=== PATIENT | male | born 1970 | race Caucasian/White ===

== ENCOUNTER 2021-11-10 10:52 | Emergency (ER) | payer OTHER ==
[~2021-11-10] VITALS: Ht 175.3 cm; Wt 82.7 kg
[2021-11-10] MEDS ORDERED: IBUPROFEN 600 MG TABLET. PO ONE (11:30)
[2021-11-10] MEDS ORDERED: AMOXICILLIN/K CLAV 875/125MG TABLET. PO ONE (11:30)
[2021-11-10] MEDS ORDERED: HYDROcodone/APAP 5/325MG 1 TAB TABLET PO ONE (11:30)
[2021-11-10] MEDS ORDERED: IBUP600T16 PO (11:39)
[2021-11-10] MEDS ORDERED: AMOX1TAB61 PO (11:39)
--- NOTE | 2021-11-10 11:40 | PHYS DOC ---
Adult General Chief Complaint Chief Complaint: DENTAL PROBLEM HPI HPI Patient is a 51-year-old male who presents to the emergency department complaining of dental pain of the right lower molar, patient reports he has had problems with the cap repair on this tooth, has not seen a dentist, reports he is traveling here to [facility] to visit family over the holiday, will return to his home state of [place] tomorrow morning. Patient states he felt tingliness with mild off-and-on pain over the past week, woke up this morning with swelling around the gum with pain, patient reports mild pain relief with Orajel. Patient denies fever or chills, denies numbness or tingling to his face or tongue, denies problems speaking, denies shortness of breath or throat swelling. Patient denies recent fever or chills. Patient reports a past medical history of hypercholesterol, takes Zocor medication, does not take any other medications, denies other physical complaints or physical concerns. (SUKHDEV TALAVERA APRN) Review of Systems Review of Systems 14 body systems of review of systems have been reviewed. See HPI for pertinent positives and negative responses, otherwise all other systems are negative, nonpertinent or noncontributory. Constitutional: Negative except as outlined in HPI above. Skin: Negative except as outlined in HPI above. Eyes: Negative except as outlined in HPI above. HENT: Negative except as outlined in HPI above. Respiratory: Negative except as outlined in HPI above. Cardiovascular: Negative except as outlined in HPI above. GI: Negative except as outlined in HPI above. : Negative except as outlined in HPI above. Musculoskeletal: Negative except as outlined in HPI above. Integument: Negative except as outlined in HPI above. Neurologic: Negative except as outlined in HPI above. Endocrine: Negative except as outlined in HPI above. Lymphatic: Negative except as outlined in HPI above. Psychiatric: Negative except as outlined in HPI above. (SUKHDEV TALAVERA APRN) Current Medications Current Medications Current Medications Medications (Trade) Dose Ordered Sig/Fdai Start Time Stop Time Status Last Admin Dose Admin Acetaminophen/ Hydrocodone Bitart (Lortab 5/325) 1 tab 1X ONCE 11/10/21 11:30 11/10/21 11:31 UNV Amoxicillin/ Clavulanate Potassium (Augmentin 875/ 125mg) 1 tab 1X ONCE 11/10/21 11:30 11/10/21 11:31 UNV Ibuprofen (Motrin) 600 mg 1X ONCE 11/10/21 11:30 11/10/21 11:31 UNV (SUKHDEV TALAVERA APRN) Physical Exam Physical Exam Constitutional: Well developed, well nourished, no acute distress, non-toxic appearance. 51-year-old male in no apparent distress. HENT: Normocephalic, atraumatic. Oropharynx moist, pink, no deep tissue infectious process appreciated, no drooling, no trismus, no malocclusion, swelling to the lateral gum at tooth #30, no visual discrepancy of tooth cap repair. No lymphadenopathy of the head or neck appreciated. Patient speaking in full sentences, normal voice tones. Bilateral TMs within normal limits, no drainage from external auditory canals, patent nasal turbinates. Eyes: Conjunctiva normal, no discharge. Neck: Normal range of motion, no stridor. No nuchal rigidity, no meningismus signs. Cardiovascular: No cyanosis appreciated, distal cap refill less than 2 seconds. Lungs & Thorax: Patient is in no respiratory distress, no audible adventitious lung sounds appreciated. Abdomen: Nontender, no abnormalities noted. Skin: Warm, dry, no erythema, no rash. Back: No tenderness, no deformities. Extremities: No tenderness, no cyanosis, no clubbing, ROM intact, no edema. Neurologic: Alert and oriented X 3, normal motor function, normal sensory function, no focal deficits noted. Psychologic: Affect normal, judgement normal, mood normal. (SUKHDEV TALAVERA APRN) EKG EKG [] (SUKHDEV TALAVERA APRN) Radiology/Procedures Radiology/Procedures [] (SUKHDEV TALAVERA APRN) Heart Score C/O Chest Pain: No Risk Factors: Risk Factors: DM, Current or recent (<one month) smoker, HTN, HLP, family history of CAD, obesity. Risk Scores: Risk Factors: DM, Current or recent (<one month) smoker, HTN, HLP, family history of CAD, obesity. (SUKHDEV TALAVERA APRN) Course & Med Decision Making Course & Med Decision Making Pertinent Labs and Imaging studies reviewed. (See chart for details) 51-year-old male, vital signs reviewed, presents to the emergency department concerning dental infection over the past week became worse overnight. Physical examination consistent with dental abscess, patient is not febrile, oral temp 98.4. Will start on Augmentin and give p.o. pain medications in the ED prior to discharge, prescribed Augmentin regimen, 600 mg ibuprofen, strict follow-up with dentist when returns to home [facility] tomorrow. Discussed return to ER precautions or concerns, prescribed medications and possible side effects, patient gave verbal understanding of and is amenable to ED discharge planning. Discussed with the patient all findings and diagnostic testing as well as the need to follow-up with their primary care provider for further evaluation and treatment or return to the ED if any new or worsening symptoms. Strict return precautions were also discussed at length, the patient voiced understanding and agreement with the discharge planning. The patient was nontoxic in appearance, in no apparent distress, and hemodynamically stable at the time of disposition. (SUKHDEV TALAVERA APRN) Course & Med Decision Making I was the Attending physician on the above date of service of this patient. This patient was evaluated, examined, treated, and dispositioned from the emergency department by the mid-level practitioner. Although I was working at the time , no assistance was requested. Electronically signed, Twila Ayala DO (TWILA AYALA DO) Benjamín Disclaimer Benjamín Disclaimer This electronic medical record was generated, in whole or in part, using a voice recognition dictation system. (SUKHDEV TALAVERA APRN) Departure Departure: Impression: Primary Impression: Dental abscess Disposition: HOME / SELF CARE / HOMELESS Condition: GOOD Referrals: PCP,NO (PCP) Patient Instructions: Dental Abscess Additional Instructions: You were seen today in the emergency department for a dental infection. You were given your first dose of Augmentin in the emergency department, you will take this twice a day for the next 14 days, I will prescribe you 600 mg Motrin that you can take every 4-6 hours for pain and discomfort, you can continue to use [id number] Orajel for discomfort, warm salt water swish and spit to aid in discomfort and speedy recovery, please see your dentist when you return home to [place] tomorrow, return to the emergency department for worsening symptoms or other concerns. Thank you for visiting our Emergency Department. It was a pleasure taking care of you today in the emergency department and we appreciate you trusting us with your care. If any additional problems come up don't hesitate to return to visit us. Please follow up with your primary care provider so they can plan additional care if needed and know about the problem that you had. If symptoms worsen come back to the Emergency Department. Any concerning symptoms that start such as chest pain, shortness of air, weakness or numbness on one side of the body, running high fevers or any other concerning symptoms return to the ER. Scripts Ibuprofen (IBUPROFEN) 600 Mg Tablet 600 MG PO PRN Q4-6HRS PRN for dental pain, #30 TAB 0 Refills Prov: SUKHDEV TALAVERA APRN 11/10/21 Amoxicillin/Potassium Clav (AUGMENTIN 875-125 TABLET) 1 Each Tablet 1 TAB PO BID for dental infection for 14 Days, #28 TAB 0 Refills Prov: SUKHDEV TALAVERA APRN 11/10/21 SUKHDEV TALAVERA APRN Nov 10, 2021 11:40 TWILA AYALA DO Nov 13, 2021 06:54
[2021-11-10 11:51] VITALS: BP 138/63
== END 2021-11-10 11:53 | disposition home or self-care (01) ==
LOC: ER 10:52
DX: K04.7 Periapical abscess without sinus (principal)
CPT/HCPCS: 99284